=== PATIENT | male | born 1960 | race Caucasian/White ===

== ENCOUNTER 2016-12-18 09:20 | Emergency (ER) | payer OTHER ==
[~2016-12-18] VITALS: Ht 170.2 cm; Wt 100.0 kg
[2016-12-18 09:22] VITALS: BP 179/90; PULSE 84; RESP 20; TEMP 97.8; O2SAT 97
[2016-12-18] MEDS ORDERED: CLON.5 PO (09:36)
[2016-12-18] MEDS ORDERED: METF500T PO (09:36)
[2016-12-18] MEDS ORDERED: blood pressure (09:36)
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
[2016-12-18] MEDS ORDERED: BACT800T5 PO (09:59)
[2016-12-18] MEDS ORDERED: CEPH-460 PO (09:59)
[2016-12-18] MEDS ORDERED: IBUP800T23 PO (09:59)
[2016-12-18] MEDS ORDERED: SILVER SULFADIAZINE 1% CR 50 GM JAR TOPICAL ONE (10:00)
== END 2016-12-18 10:16 | disposition home or self-care (01) ==
LOC: NEPB 09:20
DX: T24.331A Burn of third degree of right lower leg, initial encounter (principal); L08.89 Other specified local infections of the skin and subcutaneous tissue; E11.9 Type 2 diabetes mellitus without complications; I10 Essential (primary) hypertension; Z79.84 Long term (current) use of oral hypoglycemic drugs; X17.XXXA Contact with hot engines, machinery and tools, initial encounter
CPT/HCPCS: 16020; 86403; 87070